=== PATIENT | female | born 1935 | race Caucasian/White ===

== ENCOUNTER 2016-03-27 12:44 | Observation (INO) | payer MEDICARE, OTHER ==
[~2016-03-27] VITALS: Ht 172.7 cm; Wt 95.5 kg
--- NOTE | ~2016-03-27 | HEMODYNAMI ---
PATIENT:BAILEY BLANCO MEDICAL RECORD: [id number] : 39 LOCATION:[facility] D.2112 ADMISSION DATE: 03/27/16 Generatedon:03/28/201617:50 Patient name: BAILEY BLANCO Patient #: [id number] SSN: : 1935 Date of study: 03/28/2016 Page: Of Hemodynamic Procedure Report Patient Data Patient Demographics Procedure consent was obtained First Name: BAILEY Gender: Female Last Name: BELLA : 1935 Middle Initial: M Age: 81 year(s) Patient #: [id number] Race: Unknown Additional ID: [id number] Contact details [address]: [address] [place] [address] State: [place] City: [place] Zip code: [address] Admission Admission Data Admission Date: 03/27/2016 Admission Time: 15:42 Room #: 2112 Procedure Procedure Types Cath Procedure Diagnostic Procedure LHC LHC w/Coronaries Procedure Description Procedure Date Procedure Date: 03/28/2016 Procedure Start Time: 17:31 Procedure Staff Name Function Sean Pryor MD Performing Physician Jeff Catalan RT Scrub Lina Anaya RN Nurse Brendan Farmer RT Monitor Procedure Data Cath Procedure Fluoroscopy Diagnostic fluoroscopy Total fluoroscopy Time: 1.3 time: 1.3 min min Diagnostic fluoroscopy Total fluoroscopy dose: dose: 178.16 mGy 178.16 mGy Contrast Material Contrast Material Type Amount (ml) Isovue 300 63 Entry Location Entry Primary Successful Side Size Upsize Upsize Entry Closure Succes sful Closure Location (Fr) 1 (Fr) 2 (Fr) Remarks Device Remarks Femoral Right 5 Fr Exoseal artery Diagnostic catheters Device Type Used For End Catheter Placement Cordis 5Fr JL 4.0 Left Coronary Catheter (MP) Angiography Cordis 5Fr 3DRC Catheter Right Coronary (MP) Angiography Cordis 5Fr Pigtail LV Angiography Catheter (MP) Procedure Medications Medication Administration Route Dosage Oxygen NC 2 l/min Heparin Flush Bag added to field 2 bags (1000units/500ml NS) Lidocaine 2% added to field 20 Fentanyl I.V. 50 mcg Versed I.V. 1 mg Fentanyl I.V. 50 mcg Versed I.V. 1 mg Hemodynamics Rest Heart Rate: 93 (bpm) Pressure Samples Time Site Value (mmHg) Purpose Heart Use Rate(bpm) 17:40 LV 125/8,7 Snapshot 83 17:40 LV 125/8,5 Snapshot 86 17:41 AO 122/83(101) Pullback 84 17:41 LV 108/16,15 Pullback 84 Gradients Valve Time Site 1 Site 2 Mean SEP/DFP Peak To Heart Use (mmHg) (sec/min) Peak Rate (mmHg) (bpm) Aortic 17:41 LV AO 0 84 108/16,15 122/83(101) Calculations Valve P-P Mean Valve Index Valve Source Name Gradient Area Flow (cm2) Aortic 0 0 Snapshots Pre Cath Intra NCS Post Cath Vital Signs Time Heart Resp SPO2 NIBP (mmHg) Rhythm Pain Sedation Rate (ipm) (%) Status Level (bpm) 16:06:33 91 17 93 166/98(130) NSR 0 (11) 10(A) , No pain 16:10:53 85 17 93 167/95(136) NSR 0 (11) 10(A) , No pain 16:15:15 86 16 91 158/92(133) NSR 0 (11) 10(A) , No pain 16:19:35 81 17 92 162/85(129) NSR 0 (11) 10(A) , No pain 16:23:55 85 17 92 152/92(135) NSR 0 (11) 10(A) , No pain 16:28:17 77 17 94 160/79(132) NSR 0 (11) 10(A) , No pain 16:32:39 83 18 94 156/87(124) NSR 0 (11) 10(A) , No pain 16:37:03 80 16 95 159/77(123) NSR 0 (11) 10(A) , No pain 16:41:24 83 19 96 165/91(117) NSR 0 (11) 10(A) , No pain 16:45:46 73 18 94 152/87(114) NSR 0 (11) 10(A) , No pain 16:50:02 80 20 96 160/93(125) NSR 0 (11) 10(A) , No pain 16:54:20 90 18 96 156/93(121) NSR 0 (11) 10(A) , No pain 16:58:38 96 20 97 163/92(118) NSR 0 (11) 10(A) , No pain 17:03:00 91 18 97 146/86(114) NSR 0 (11) 10(A) , No pain 17:07:22 80 17 94 150/69(103) NSR 0 (11) 10(A) , No pain 17:11:44 73 17 95 135/73(112) NSR 0 (11) 10(A) , No pain 17:16:00 82 18 94 151/74(99) NSR 0 (11) 10(A) , No pain 17:20:21 73 19 96 151/77(100) NSR 0 (11) 10(A) , No pain 17:24:41 79 16 97 130/78(98) NSR 0 (11) 10(A) , No pain 17:28:53 77 18 96 146/81(113) NSR 0 (11) 10(A) , No pain 17:33:05 83 18 95 141/89(122) NSR 0 (11) 9(A) , No pain 17:37:21 78 16 96 135/78(108) NSR 0 (11) 9(A) , No pain 17:41:35 85 18 96 146/78(104) NSR 0 (11) 9(A) , No pain 17:45:57 80 17 96 146/73(111) NSR 0 (11) 9(A) , No pain Medications Time Medication Route Dose Verified Delivered Reason Notes Effec tiveness by by 16:05:19 Oxygen NC 2 Lina Lina used for l/min Anaya Anaya aircraft armament mechanic RN 16:05:29 Heparin Flush added 2 Lina Lina used for Bag to bags Anaya Anaya procedure (1000units/500ml field RN RN NS) 16:05:37 Lidocaine 2% added 20ml Lina Lina used for to vial Anaya Anaya procedure field RN RN 17:31:39 Fentanyl I.V. 50 Lina Lina for mcg Anaya Anaya sedation RN RN 17:31:47 Versed I.V. 1 mg Lina Lina for Anaya Anaya sedation RN RN 17:34:31 Fentanyl I.V. 50 Lina Lina for mcg Anaya Anaya sedation RN RN 17:34:37 Versed I.V. 1 mg Lina Lina for Anaya Anaya sedation RN food and beverage checker Log Time Note 15:41:15 Brendan Farmer RT (R) (CV) sent for patient. Start room use. 15:56:32 Time tracking: Regular hours 15:56:38 Plan of Care:Hemodynamics will remain stable., Cardiac rhythm will remain stable., Comfort level will be maintained., Respiratory function will remain adequate., Patient/ family verbilizes understanding of procedure., Procedure tolerated without complication., Recovers from procedure without complications.. 15:56:43 Patient received from Outpatients to IR Alert and oriented. Tansferred to table in Supine position. 15:56:44 Correct patient and procedure confirmed by team. 15:56:46 Signed procedure consent form obtained from patient. 15:56:47 ECG and BP/O2 sat monitors applied to patient. 15:56:48 Full Disclosure recording started 15:56:49 - 15:56:54 H&P Date Dictated: 03/28/2016 Within 30 days and on chart.. 15:56:55 Pre-procedure instructions explained to patient. 15:56:56 Pre-op teaching completed and patient verbalized understanding. 15:56:57 Family in waiting room. 15:56:59 Patient NPO since Midnight. 15:59:52 Is the patient allergic to Iodine/contrast media? No. 15:59:55 Is patient on blood thinner?No 15:59:56 Patient diabetic? No. 16:00:00 - 16:00:02 ----Pre-sedation anethsthesia assessment.---- 16:00:05 Previous problem with sedation/anesthesia? No ? 16:00:36 Snore? Yes 16:00:38 Sleep apnea? No 16:00:42 Deviated septum? No 16:00:47 Opens mouth fully? Yes 16:00:49 Sticks out tongue? Yes 16:00:52 Airway obstruction? No ? 16:01:03 Pre procedure: right dorsailis pedis pulse Doppler 16:01:08 Patient pain scale 0/10 NO. 16:01:16 Use device set Femoral Dx 16:01:18 IV Extension Set opened to sterile field. 16:01:19 Tegaderm 4 x 4 opened to sterile field. 16:01:20 Cordis Infinity 5Fr Multipack catheter opened to sterile field. 16:01:21 Acist Manifold opened to sterile field. 16:01:22 Acist Hand Control opened to sterile field. 16:01:23 St Ankush 260cm J .035 wire opened to sterile field. 16:01:24 Terumo 5Fr [place] Sheath opened to sterile field. 16:01:25 Cardinal Cath Pack opened to sterile field. 16:01:25 Bag Decanter opened to sterile field. 16:01:31 Acist Syringe opened to sterile field. 16:05:19 Oxygen 2 l/min NC was given by Lina Anaya RN; used for procedure; 16:05:21 Vital chart was started 16:05:22 Baseline sample Acquired. 16:05:26 Rhythm: sinus rhythm 16:05:29 Heparin Flush Bag (1000units/500ml NS) 2 bags added to field was given by Lina Anaya RN; used for procedure; 16:05:37 Lidocaine 2% 20ml vial added to field was given by Lina Anaya RN; used for procedure; 16:05:42 IV patent on arrival in right hand with 0.9% NaCl at [facility]. 16:05:44 Sharps counted by scrub and verified by R.N. 16:05:44 Alarms reviewed by R. N. 16:05:49 Right groin area was prepped with chlora-prep and draped in sterile fashion 17:30:57 Physician arrived 17:30:57 --------ALL STOP TIME OUT------ 17:30:58 Final Timeout: patient, procedure, and site verified with staff and physician. All members of the team are in agreement. 17:31:02 Right groin site verified by team. 17:31:06 Physical assessment completed. ASA score P 2 - A patient with mild systemic disease as per Sean Pryor MD. 17:31:11 Sedation plan: IV Moderate Sedation Versed, Fentanyl 17:31:39 Fentanyl 50 mcg I.V. was given by Lina Anaya RN; for sedation; 17:31:43 Procedure started. 17:31:47 Versed 1 mg I.V. was given by Lina Anaya RN; for sedation; 17:31:52 Local anesthetic to right femoral artery with Lidocaine 2% by Sean Pryor MD.INITIAL ACCESS ONLY 17:32:12 A 5 Fr sheath was inserted into the Right Femoral artery 17:32:16 TUBING, CONTRAST INJCTN HI PRES opened to sterile field. 17:34:31 Fentanyl 50 mcg I.V. was given by Lina Anaya RN; for sedation; 17:34:37 Versed 1 mg I.V. was given by Lina Anaya RN; for sedation; 17:35:52 A Cordis 5Fr JL 4.0 Catheter (MP) was advanced over the wire and used for Left Coronary Angiography. 17:35:57 LCA angiography performed. 17:36:46 Catheter removed. 17:36:52 A Cordis 5Fr 3DRC Catheter (MP) was advanced over the wire and used for Right Coronary Angiography. 17:38:00 RCA angiography performed. 17:38:59 Catheter removed. 17:39:06 A Cordis 5Fr Pigtail Catheter (MP) was advanced over the wire and used for LV Angiography. 17:39:10 Zero performed for pressure channel P1 17:39:15 Zero performed for pressure channel P1 17:39:32 LV angiography performed. 17:40:45 Tegaderm 4 x 4 opened to sterile field. 17:41:04 Cordis 5Fr Exoseal opened to sterile field. 17:42:03 Sheath removed intact; hemostasis achieved with Exoseal to the Right Femoral artery. 17:42:23 Procedure ended.(Physican Out) 17:42:36 Fluoroscopy time 01.30 minutes. 17:42:43 Fluoroscopy dose: 178.16 mGy 17:42:43 Flurop Dose total: 178.16 17:42:49 Contrast amount:Isovue 300 63ml. 17:42:51 Sharps counted by scrub and verified by R.N. 17:42:56 Insertion/operative site no bleeding no hematoma. 17:43:12 Post-op/insertion site Right Femoral artery dressed using a 4 x 4 and Tegaderm. 17:43:27 Post right femoral artery:stable 17:43:29 Post Procedure Pulses reassessed and unchanged 17:43:34 Post-procedure physical assessment completed. ASA score P 2 - A patient with mild systemic disease as per Sean Pryor MD. 17:43:37 Post procedure rhythm: unchanged. 17:43:39 Post procedure instruction explained to patient.Patient verbalizes understanding. 17:43:40 Procedure and supply charges have been captured, reviewed, submitted an d are correct. 17:49:15 Report given to PCU. 17:49:19 Patient transfered to PCU with Bed. 17:50:04 Vital chart was stopped Device Usage Item Name Manufacture Quantity Catalog Hospital Part Current Minimal Lo t# / Number Charge Number Stock Stock Serial# Code IV Hospira 1 10678-47 [id number] 39528 829937 5 Extension Set Tegaderm 3M 2 1626W 134018 731968 139270 5 4 x 4 Cordis Cardinal 1 [id number] 635382 26219 984519 30 MyGeekDay 5Fr Multipack catheter Acist Acist 1 06793 825465 304785 064742 5 [employer] Acist Acist 1 06270 180342 279353 983156 5 Hand Medical [employer] Inc St Ankush St Ankush 1 832108 716481 159300 077116 30 260cm J .035 wire Terumo Terumo 1 FMK025 961148 178017 911464 40 5Fr [place] Sheath Cardinal Cardinal [address] 312039 47125 684243 5 Cath Pack Health Bag Microtek 1 2001S 306609 51521 032280 5 [email or web address] Acist Acist 1 48476 016339 190906 315788 20 Syringe Medical Systems Inc TUBING, Merit 1 OPO071B 142960 386501 932611 5 CONTRAST Medical INJCTN HI PRES Cordis Cardinal 1 331147 5 5Fr JL Health 4.0 Catheter (MP) Cordis Cardinal 1 570431 5 5Fr 3DRC Health Catheter (MP) Cordis Cardinal 1 984945 5 5Fr Health Pigtail Catheter (MP) Cordis Cardinal 1 EX500 922966 960316 759421 10 17 489027 5Fr Health Exoseal Signature Audit [place] Stage Time Signature Unsigned Intra-Procedure 03/28/2016 Brendan 5:50:01 PM Marleny RT (R) (CV) Signatures Monitor : Brendan Signature : Marleny RT Date : Time : [address] [place] [address]
[2016-03-27 13:45] LABS: BASOPHILS 0.5 % (0.0-2.0); EOSINOPHILS 2.3 % (0-7); HEMATOCRIT 40.1 % (36.0-48.0); HEMOGLOBIN 13.3 g/dL (12-16); IMMATURE GRANULOCYTES 0.2 % (0-5); LYMPHOCYTES 29.6 % (15-50); MCH 30.4 pg (26.0-34.0); MCHC 33.2 g/dL (31.0-37.0); MCV 91.6 fL (80.0-100.0); MEAN PLATELET VOLUME 9.7 fL (7.4-10.4); MONOCYTES 14.4 % (2-11); PLATELET COUNT 188 10x3/uL (130-400); RBC 4.38 10x6/uL (4.00-5.40); RDW 12.4 % (11.5-14.5); WBC 6.1 10x3/uL (4.8-10.8)
[2016-03-27 14:02] LABS: ALBUMIN 3.4 g/dL (3.4-5.0); ANION GAP 15.5 mmol/L (8-16); BILIRUBIN - TOTAL 0.3 mg/dL (0.2-1.3); CALCIUM 8.7 mg/dL (8.5-10.1); CARBON DIOXIDE 23.4 mmol/L (21.0-32.0); POTASSIUM - SERUM 3.9 mmol/L (3.5-5.1); PROTEIN - SERUM 6.5 g/dL (6.4-8.2)
[2016-03-27 14:22] LABS: TROPONIN-I 0.119 ng/mL (0.000-0.060)
[2016-03-27 15:20] LABS: CREATINE KINASE 126 UL (21-215)
[2016-03-27] MEDS ORDERED: COREG6.25 MG PO (16:30)
[2016-03-27] MEDS ORDERED: COZAAR100 MG PO (16:31)
[2016-03-27] MEDS ORDERED: TENORMIN25 MG PO (16:31)
[2016-03-27] MEDS ORDERED: SYNTHROID25 MCG PO (16:31)
[2016-03-27] MEDS ORDERED: IPRATROPIUM BR21 MCG NASAL (16:31)
[2016-03-27] MEDS ORDERED: OMEPRAZOLE40 MG PO (16:32)
[2016-03-27] MEDS ORDERED: TRICOR145 MG PO (16:32)
[2016-03-27 16:41] VITALS: BP 174/82; Ht 172.7 cm; Wt 95.5 kg
--- NOTE | 2016-03-27 16:49 | NUR ---
RECEIVED PT FROM ER VIA WHEELCHAIR. NO OTHER NEEDS AT THIS TIME. 93 SR PER TELEMETRY. NO CO PAIN AT THIS TIME. VSS AT THIS TIME. WILL CONTINUE TO MONITOR.
[2016-03-27 20:00] VITALS: BP 145/79
--- NOTE | 2016-03-27 20:09 | NUR ---
RESUMED CARE OF PT, LYING IN BED RESPIRAITONS EVEN AND UNLABORED ON 2LPM VIA NC. 81 SR ON TELEMETRY. RIGHT WRIST SALINE LOCKED. PLAN OF CARE DISCUSSED. CALL LIGHT IN REACH. WILL CONTINUE TO MONITOR. SEE NURSE ASSESSMENT.
[2016-03-28] VITALS: BP 154/66
[2016-03-28 04:00] VITALS: BP 146/79
--- NOTE | 2016-03-28 05:58 | NUR ---
NO CHANGES FROM PREVIOUS ASSESSMENT, CALL LIGHT IN REACH. WILL CONTINUE WITH PLAN OF CARE.
[2016-03-28 07:39] LABS: BASOPHILS 0.5 % (0.0-2.0); EOSINOPHILS 4.1 % (0-7); HEMATOCRIT 40.9 % (36.0-48.0); HEMOGLOBIN 13.3 g/dL (12-16); LYMPHOCYTES 44.8 % (15-50); MCH 29.9 pg (26.0-34.0); MCHC 32.5 g/dL (31.0-37.0); MCV 91.9 fL (80.0-100.0); MEAN PLATELET VOLUME 9.4 fL (7.4-10.4); MONOCYTES 12.6 % (2-11); PLATELET COUNT 187 10x3/uL (130-400); RBC 4.45 10x6/uL (4.00-5.40); RDW 12.4 % (11.5-14.5)
[2016-03-28 07:46] LABS: WBC 4.4 10x3/uL (4.8-10.8)
[2016-03-28 07:47] LABS: HCG SERUM NEGATIVE (NEGATIVE)
[2016-03-28 07:50] LABS: CALCIUM 8.9 mg/dL (8.5-10.1); CARBON DIOXIDE 28.7 mmol/L (21.0-32.0); CREATININE - SERUM 0.9 mg/dL (0.6-1.3); POTASSIUM - SERUM 3.7 mmol/L (3.5-5.1)
[2016-03-28 08:00] VITALS: BP 141/81
[2016-03-28 12:00] VITALS: BP 134/76
--- NOTE | 2016-03-28 15:40 | NUR ---
ALERT AND ORIENTED X4. SITTING UP IN BED. FAMILY AT BEDSIDE. DENIES PAIN OR SOB. CONSENTS FOR AVIATION TECHNICIAN AIRCRAFT SIGNED ON THE CHART. TAKEN TO AVIATION TECHNICIAN AIRCRAFT VIA BED. CONTINUE PLAN OF CARE AND SAFETY PRECAUTIONS.
[2016-03-28 16:00] VITALS: BP 143/78
--- NOTE | 2016-03-28 18:09 | NUR ---
RETURN TO ROOM VIA BED FROM SALVAGE INSPECTOR. CLEAN CATH. REMAIN FLAT FOR 2HRS. RT GROIN DRESSING CLEAN DRY INTACT. NO BLEEDING. NO HEMATOMA. PULSES +2 BILATERALLY. BP-143/76, R-16, P-76bpm SINUS RHYTHM. FAMILY AT BEDSIDE. CONTINUE PLAN OF CARE AND SAFETY PRECAUTIONS.
--- NOTE | 2016-03-28 18:40 | NUR ---
UNABLE TO DC UNTIL 1949. DELEGATE DC PAPERWORK TO REPRESENTATIVE PERSONAL SERVICE NURSE.
[2016-03-28 20:00] VITALS: BP 135/62
--- NOTE | 2016-03-28 21:04 | NUR ---
PT AMBULATED @ 20:10 WITH ASSIST TO THE BATHROOM, WHEN SHE DID HAVE A SINKING SPELL AND NEEDED TO SIT DOWN IMMEDIATELY. PT WAS PLACED IN THE BEDSIDE CHAIR WITHOUT DIFFICULTY BY KAYLAN SANCHEZ, BECAME PALE, DYSPNEIC, AND NEAR SYNCOPAL. PT WAS HYPOTENSIVE AND TACHYCARDIC, C/O CHEST PAIN THAT DID RESOLVE WITH REST. PTS RIGHT GROIN IS INSERTION POINT FROM CARDIAC CATH EARLIER TODAY, CLEAN, DRY, INTACT, NO OOZING OR BLEEDING, NO BRUISING. PT WAS RETURNED TO HER BED, WHERE I DID A SMALL BOLUS 500MLS OF NS TO HELP WITH B/P. PTS COLOR DID RETURN UPON REST, BREATHING BECAME NONLABORED AND EVEN. WILL CONTINUE TO MONITOR CLOSELY. PT IS TO BE D/C'D TODAY, HOWEVER AT THIS TIME, PT DOES REQUIRE FURTHER MONITORING.
--- NOTE | 2016-03-28 22:42 | NUR ---
SPOKE WITH DR. ISABEL VIA TELEPHONE R/T PTS CURRENT CONDITION AND THOUGH SHE IS FEELING BETTER, STATED SHE WAS NOT COMFORTABLE BEING D/C'D AT THIS TIME. DR. ISABEL ORDERED TO CANCEL HER D/C FOR TODAY AND KEEP HER FOR OBSERVATION. CONTINUE TO MONITOR CLOSELY.
[2016-03-29] VITALS: BP 115/56
[2016-03-29 04:00] VITALS: BP 121/72
--- NOTE | 2016-03-29 05:56 | NUR ---
PT LYING IN BED, EYES CLOSED, RESPIRATIONS UNEVEN, PERIODS OF APNEA, EASILY ROUSABLE TO VERBAL STIMULI. PT STATES SHE IS FEELING MUCH BETTER SINCE HER SINKING SPELL LAST P.M. CONTINUE TO MONITOR CLOSELY.
[2016-03-29 08:54] VITALS: BP 178/100
[2016-03-29 12:15] VITALS: BP 161/93
--- NOTE | 2016-03-29 16:30 | NUR ---
ALERT AND ORIENTED X4. SITTING UP IN BED. DISCHARGE INSTRUCTIONS GIVEN VERBALLY AND WRITTEN. DISCHARGE INSTRUCTIONS GIVEN VERBALLY AND WRITTEN. DC RT WRIST IV TIP INTACT. ESCORT TO RIDE VIA WHEELCHAIR. REMAINS FREE FROM INJURY.
--- NOTE | 2016-03-30 14:16 | OP ---
PATIENT NAME: BAILEY BLANCO MEDICAL RECORD: [id number] :37 LOCATION:D. D.2111 ADMISSION DATE:03/27/16 SURGEON: EMMANUEL ORO MD DATE OF OPERATION: PROCEDURE: Left heart cath and selective coronary angiography, right femoral artery approach. CATHETERS: A 5-Mexican sheath, 5/4 left and right Garcia, 5/4 pig. The procedure was well tolerated. The patient returned to the guerrero, sheath removed. Adequate hemostasis was obtained. FINDINGS: Left ventriculography 30-degree BOOTH view: Normal wall motion and normal systolic function. CORONARY ANATOMY: LEFT MAIN: Left main is free of disease. LAD: Free of disease in the diagonal system. CIRCUMFLEX: Free of disease in the marginal system. RIGHT CORONARY ARTERY: Dominant artery, gives rise to PDA, free of disease. IMPRESSION: Normal systolic function. Normal coronary anatomy. TRANSINT:[id number] Voice Confirmation ID: [id number] DOCUMENT ID: [id number] EMMANUEL ORO MD at 1416 CC: [id number] DICTATION DATE: 03/28/16 174 PLATE MAKER ZINC: 03/28/161955 DIS IN 03/29/16 [facility] [address] [place] [address]
--- NOTE | 2016-03-30 14:16 | HP ---
PATIENT: BAILEY BLANCO MEDICAL RECORD: [id number] ACCOUNT: [id number] LOCATION:[facility] D.2111 : 37 ADMISSION DATE: 03/27/16 HISTORY AND PHYSICAL EXAMINATION HISTORY OF PRESENT ILLNESS: A 81-year-old female with history of cardiac arrhythmias, SVT. She has a history of hypertension and has been noticing progressive shortness of breath over the past couple of months. She had an episode yesterday of chest pain, which was somewhat new. She presented to the ER, was found to have mildly elevated enzymes. 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 We are asked to see her concerning her cardiovascular status. PAST MEDICAL HISTORY: Include: 1. History of cardiac arrhythmias with SVT. 2. Dyslipidemia. 3. Hypertension. 4. Hypothyroidism, on replacement. 5. Gastroesophageal reflux disease. ALLERGIES: SULFA, STATINS, LATEX, AND KEFLEX. SOCIAL HISTORY: Lives here in [place]. She is a nonsmoker. She takes care all of her ADLs. MEDICATIONS: Include carvedilol 6.25 b.i.d., TriCor 145 every day, losartan 100 every day, omeprazole 40 every day, Synthroid 25 mcg every day. REVIEW OF SYSTEMS: The patient reports easy bruising but reports no swollen glands. The patient reports no fever, no night sweats, no significant weight gain, no significant weight loss. No significant exercise tolerance. The patient reports no dry eyes, no irritation, no vision change. Patient reports no difficulty hearing and no ear pain. Patient reports no frequent nose bleeds or nose and sinus problems. Patient reports on arm pain on exertion. No shortness of breath while lying down. No history of heart murmur. Patient reports no cough, no wheezing or coughing up blood. Patient reports no abdominal pain, no vomiting. Normal appetite. No diarrhea and not vomiting blood. No nausea and no constipation. Patient reports no incontinence. No difficulty urinating. No hematuria. No increased frequency. Patient reports no muscle aches. No weakness, no arthralgias, no back pain. No swelling of the extremities. Patient reports no abnormal mole, no jaundice, no rashes. Reports no loss of consciousness. No weakness and no numbness. No seizures, dizziness, or headaches. The patient reports no depression, no sleep disturbance, feeling safe in a relationship and no alcohol abuse. Patient reports on fatigue. Reports no runny nose or sinus pressure. No itching, no hives, and no frequent sneezing. PHYSICAL EXAMINATION: GENERAL: Pleasant gentleman in no acute distress, appears stated age. VITAL SIGNS: Blood pressure 146/79, pulse 81 and regular. HEENT: Normocephalic and atraumatic. NECK: No JVD or bruit. HEART: Regular. LUNGS: Harris are clear. ABDOMEN: Soft and nontender. HISTORY AND PHYSICAL [id number] BLAN[place]ILEY EXTREMITIES: Pulses 2+ and equal. There is no edema. DIAGNOSTIC DATA: ECG shows left anterior fascicular block. IMPRESSION: Acute coronary syndrome. PLAN: Angiography. Intervention based on above. TRANSINT:[id number] Voice Confirmation ID: [id number] DOCUMENT ID: [id number] EMMANUEL ORO MD at 1416 CC: [id number] DICTATION DATE: 03/28/16 0738 CURTAIN FITTER: 03/28/16 0911 DIS IN 03/29/16 [id number] [place] [address]
== END 2016-03-29 16:30 | disposition home or self-care (01) ==
LOC: D.ER 12:44 → D.M2 15:42 → OBSVTIME 15:43 → D.M2 03-29 16:30
PROVIDERS: Emergency Medicine; Nurse Practitioner Acute Care; ADMIT Internal Medicine Interventional Cardiology
DX: R07.9 Chest pain, unspecified (principal); I44.4 Left anterior fascicular block; R79.89 Other specified abnormal findings of blood chemistry; E78.5 Hyperlipidemia, unspecified; E03.9 Hypothyroidism, unspecified; K21.9 Gastro-esophageal reflux disease without esophagitis

== ENCOUNTER → 2016-04-20 12:52 | Outpatient (CLI) | payer MEDICARE, OTHER ==
[2016-03-27 16:41] VITALS: BMI 32.0
[~2016-04-20 12:52] MED LIST: COREG6.25 MG PO; COZAAR100 MG PO; IPRATROPIUM BR21 MCG NASAL; OMEPRAZOLE40 MG PO; SYNTHROID25 MCG PO; TENORMIN25 MG PO; TRICOR145 MG PO
== END | disposition home or self-care (01) ==
LOC: D.US 12:52
DX: M79.605 Pain in left leg (principal); R60.0 Localized edema

== ENCOUNTER → 2016-04-25 18:49 | Outpatient (CLI) | payer MEDICARE, OTHER ==
[2016-03-27 16:41] VITALS: BMI 32.0
== END | disposition home or self-care (01) ==
LOC: D.SLEEP 18:49
DX: G47.33 Obstructive sleep apnea (adult) (pediatric) (principal)

== ENCOUNTER 2016-09-12 23:23 | Emergency (ER) | payer MEDICARE, OTHER ==
[2016-03-27 16:41] VITALS: BMI 32.0
== END 2016-09-13 02:55 | disposition home or self-care (01) ==
LOC: D.ER 23:23
DX: S51.811A Laceration without foreign body of right forearm, initial encounter (principal); W20.8XXA Other cause of strike by thrown, projected or falling object, initial encounter; Y93.89 Activity, other specified; Y92.019 Unspecified place in single-family (private) house as the place of occurrence of the external cause; I10 Essential (primary) hypertension; E78.5 Hyperlipidemia, unspecified

== ENCOUNTER → 2017-09-04 19:31 | Outpatient (CLI) | payer MEDICARE, OTHER ==
[2016-03-27 16:41] VITALS: BMI 32.0
[~2017-09-04 19:31] MED LIST changes: +ELIQUIS2.5 MG PO; +HYDROCODONE-APA1 TAB PO; +MAGNESIUM OXID500 MG PO; +VITAMIN B-121000 MCG PO; +VITAMIN D31000 UNIT PO; +ZANTAC150 MG PO
== END | disposition home or self-care (01) ==
LOC: D.LABREF 19:31
DX: M16.12 Unilateral primary osteoarthritis, left hip (principal); Z11.8 Encounter for screening for other infectious and parasitic diseases

== ENCOUNTER 2017-09-13 10:00 | Inpatient (IN) | payer MEDICARE, OTHER ==
[~2017-09-13] VITALS: Ht 172.7 cm; Wt 95.5 kg
--- NOTE | ~2017-09-13 | CN ---
PATIENT NAME:BAILEY BLANCO MEDICAL RECORD: [id number] : 39 LOCATION:D.MS [facility]25 ADMIT DATE: 09/19/17 ACCOUNT: [id number] CONSULTING PHYSICIAN: HARSHA GAFFNEY DO REFERRING PHYSICIAN: ЕЛЕНА POLLARD DO DATE OF CONSULTATION: 09/20/2017 HISTORY OF PRESENT ILLNESS: An 82-year-old female had left total hip, Dr. Pollard, consult for medical management and hypertension. PAST MEDICAL HISTORY: Significant for hypertension, hyperlipidemia, degenerative joint disease, GERD. Sleep apnea, does CPAP, tolerates well, and hypothyroid. PAST SURGICAL HISTORY: Bilateral mastectomy, cardiac catheterization, left total hip with this hospitalization. CURRENT MEDICATIONS: Fenofibrate, levothyroxine 25 mcg daily, losartan 100 mg daily, vitamin D. ALLERGIES: REPORTED CEPHALEXIN, LATEX, LEVAQUIN, STATINS, SULFUR DIOXIDE. REVIEW OF SYSTEMS: GENERAL: No acute change in weight or appetite. HEENT: No cephalgia, visual changes, tinnitus, epistaxis or dysphagia. CARDIOVASCULAR: Denies chest pain, denies palpitations. PULMONARY: Denies hemoptysis, denies night sweats. GASTROINTESTINAL: Denies hematemesis, hematochezia or melena. MUSCULOSKELETAL: Status post left hip, doing well, pain well controlled. NEUROLOGIC: Denies any focal deficits. SKIN: Warm and dry. No rash. PHYSICAL EXAMINATION: VITAL SIGNS: Temperature 98.1, blood pressure 144/49, heart rate 66, respirations 18 and O2 saturations 92% on room air. GENERAL: Alert and oriented, no acute distress. HEENT: Head is normocephalic, atraumatic. Eyes: Pupils are equally round and reactive. Ears: Canals patent, TMs are intact. Nose: Nares patent without drainage. Throat: No erythema, no exudates. NECK: Supple. No lymphadenopathy, no JVD. HEART: Regular rate and rhythm. LUNGS: Clear to auscultation bilaterally. Breathing is nonlabored. ABDOMEN: Soft, nontender. Bowel sounds in all 4 quadrants. EXTREMITIES: Present times 4. No edema. NEUROLOGIC: Intact. LABORATORY DATA: CBC: White count 8.7, hemoglobin 11.5, hematocrit 35.4, platelets 203. X-ray of left hip shows a total hip prosthesis in place on the left. Also noted degenerative changes in the right. ASSESSMENT AND PLAN: 1. Status post left total hip, ortho pathway. The patient would like to try physical therapy at home with home health. 2. Hypertension. Resume home medications. 3. Hypothyroid. Continue levothyroxine 25 mcg daily. CONSULT REPORT [id number] BAILEY BLANCO 4. Obstructive sleep apnea. Continue CPAP with sleep. Supportive care. I appreciate this consult. We will follow accordingly. TRANSINT:[id number] Voice Confirmation ID: [id number] DOCUMENT ID: [id number] HARSHA GAFFNEY DO at 0805 CC: [id number] DICTATION DATE: 09/20/17 0657 PARKING ENFORCEMENT MANAGER: 09/20/17 0821 ADM IN [id number] [place] [address]
--- NOTE | ~2017-09-13 | OP ---
PATIENT NAME: BAILEY BLANCO MEDICAL RECORD: [id number] :37 LOCATION: D.2225 ADMISSION DATE:09/19/17 SURGEON: ЕЛЕНА POLLARD DO DATE OF OPERATION: 09/19/2017 PROCEDURE PERFORMED: Left total hip arthroplasty. PREOPERATIVE DIAGNOSIS: Left hip osteoarthritis. POSTOPERATIVE DIAGNOSIS: Left hip osteoarthritis. INDICATIONS: Ms. Blanco is an 82-year-old female who presented to my office sometime last fall complaining of left hip pain and lack of motion. She was not ready for a total hip. She said she wanted to try something else. We gave her intra-articular injections under fluoroscopic guidance and radiologist did this. She had some relief, but then after her last one, she did not get much relief and she has tired of dealing with the pain. Once this was apparent that the injections were not helping, she had a long discussion with me and her son who was present as well about getting it done. Once the decision was made, she was informed of the risks and benefits of the surgery including infection and numbness of the anterolateral thigh due to the anterior approach of the hip. The patient consented to the procedure. SURGEON: Елена Pollard DO DESCIRPTION OF PROCEDURE: The patient was seen in the preoperative area, given the tensor fascia alissa block by the anesthesia and then taken to the operative suite, laid in the supine position. The left hip was prepped and draped in sterile fashion. A timeout was performed and everyone was in agreement to the correct side, site, and patient. The patient was put on the [place] table. Prior to this prepping and draping and a timeout was performed. Then, the incision began 2 cm below and lateral to the ASIS and diagonally over the tensor fascia alissa muscle. Careful dissection was made down to the tensor fascia alissa fascia. This was incised in line with the fibers. The fascia was taken superiorly. Muscle belly was taken inferiorly and the fascia over the rectus was incised and the rectus was taken medially and the tensor fascia alissa laterally. The ascending branch of the lateral femoral circumflex artery was encountered. At that time, it was tied off and coagulated with the Aquamantys and then the capsule was exposed putting retractors on either side of the neck and the capsulotomy was performed with the plasma knife and tagged and then the neck cut was made. The femoral head was taken out and neck with a corkscrew. The labrum was then removed from around the acetabulum and the pulvinar was removed as well. Any bleeders were coagulated with the Aquamantys at that time. We then began reaming first medializing and then reamed up to a 49 and then a 50 cup was put in with a liner. Once the liner was put in, the femur was exposed externally rotating and extending the leg. JobSerf cutter was then used to find the femoral canal and the 4 broach broached up to a 9 trial that looked to be good size with a -3 neck and a dual mobility head. We then pulled that out and then 9 stem was a little bit loose and we broached up to an 11. The 11 fit very well. I used a high offset stem and then trialled a -3 neck with a 28 dual mobility head with 40 acetabular liner and reduced it and then looked under x-ray and seemed to be appropriate length and good fit in the femoral stem. This was then put in with the actual implants. It was reduced and again x-rays were taken and seen to be in good position. Then, the wound was irrigated thoroughly and Surgicel beads were placed in and the capsule was closed with #2 OPERATIVE REPORT [id number] BAILEY BLANCO and the tensor fascia alissa fascia was closed with 0 Vicryl and [id number] and then oversewn in a locking running stitch. Then the skin was closed with 2-0 Vicryl inverted interrupted and Prineo was placed on the skin and Telfa and Tegaderm were then put on the wound. The patient's blood loss was approximately 200 mL. Complications were none. TRANSINT:[id number] Voice Confirmation ID: [id number] DOCUMENT ID: [id number] ЕЛЕНА POLLARD DO at 1257 CC: [id number] DICTATION DATE: 09/19/17 1018 VOLUNTEER RECRUITMENT COORDINATOR: 09/19/17 1047 ADM IN [facility] [address] [place] [address]
[~2017-09-13 10:00] MED LIST changes: -ELIQUIS2.5 MG PO; -HYDROCODONE-APA1 TAB PO
[2017-09-13 11:41] LABS: BASOPHILS 0.3 % (0-2); EOSINOPHILS 2.9 % (0-7); HEMATOCRIT 41.1 % (36.0-48.0); HEMOGLOBIN 13.7 g/dL (12-16); IMMATURE GRANULOCYTES 0.2 % (0-5); LYMPHOCYTES 28.5 % (15-50); MCH 30.2 pg (26.0-34.0); MCHC 33.3 g/dL (31.0-37.0); MCV 90.5 fL (80.0-100.0); MEAN PLATELET VOLUME 9.6 fL (7.4-10.4); MONOCYTES 13.1 % (2-11); RBC 4.54 10x6/uL (4.00-5.40); RDW 12.9 % (11.5-14.5); WBC 6.6 10x3/uL (4.8-10.8)
[2017-09-13 11:51] LABS: PLATELET COUNT 243 10x3/uL (130-400)
[2017-09-13 11:54] LABS: ANION GAP 7.9 mmol/L (8-16); CALCIUM 9.6 mg/dL (8.5-10.1); CARBON DIOXIDE 31.9 mmol/L (21.0-32.0); CREATININE - SERUM 0.9 mg/dL (0.6-1.3); POTASSIUM - SERUM 3.8 mmol/L (3.5-5.1)
[2017-09-13 12:03] LABS: APPEARANCE CLEAR (CLEAR); BILIRUBIN NEGATIVE (NEGATIVE); COLOR YELLOW (YELLOW); GLUCOSE NEGATIVE (NEGATIVE); KETONE NEGATIVE (NEGATIVE); NITRITE NEGATIVE (NEGATIVE); PROTEIN NEGATIVE (NEGATIVE); UROBILINOGEN NORMAL (NORMAL)
[2017-09-13 12:29] LABS: APTT 30.4 SECONDS (22.8-39.4); PROTIME 12.8 SECONDS (11.6-15.0)
[2017-09-19 06:27] VITALS: BP 160/102; BMI 31.8
[2017-09-19 11:24] VITALS: BP 157/72
[2017-09-19 19:23] VITALS: Ht 172.7 cm; Wt 95.5 kg
[2017-09-19 20:00] VITALS: BP 109/62
[2017-09-20 04:46] LABS: HEMATOCRIT 35.4 % (36.0-48.0); HEMOGLOBIN 11.5 g/dL (12-16); MCH 29.5 pg (26.0-34.0); MCHC 32.5 g/dL (31.0-37.0); MCV 90.8 fL (80.0-100.0); MEAN PLATELET VOLUME 9.8 fL (7.4-10.4); RBC 3.9 10x6/uL (4.00-5.40); RDW 12.9 % (11.5-14.5); WBC 8.7 10x3/uL (4.8-10.8)
[2017-09-20 05:46] VITALS: BP 144/49
[2017-09-20 07:44] VITALS: BP 107/44
[2017-09-20 11:59] VITALS: BP 102/45
[2017-09-20 15:49] VITALS: BP 122/55
[2017-09-20 19:53] VITALS: BP 143/74
[2017-09-20 23:54] VITALS: BP 121/48
[2017-09-21 04:00] VITALS: BP 146/63
[2017-09-21 05:20] LABS: BASOPHILS 0.3 % (0-2); EOSINOPHILS 0.5 % (0-7); HEMATOCRIT 34.6 % (36.0-48.0); HEMOGLOBIN 11.3 g/dL (12-16); IMMATURE GRANULOCYTES 0.2 % (0-5); LYMPHOCYTES 19.6 % (15-50); MCH 29.4 pg (26.0-34.0); MCHC 32.7 g/dL (31.0-37.0); MCV 90.1 fL (80.0-100.0); MEAN PLATELET VOLUME 9.9 fL (7.4-10.4); MONOCYTES 13.9 % (2-11); NEUTROPHILS 65.5 % (40-80); PLATELET COUNT 171 10x3/uL (130-400); RBC 3.84 10x6/uL (4.00-5.40); RDW 12.8 % (11.5-14.5); WBC 6.6 10x3/uL (4.8-10.8)
[2017-09-21 05:31] LABS: CALC OSMOLALITY 270 mosm/kg (275-300); CALCIUM 8.1 mg/dL (8.5-10.1); CARBON DIOXIDE 26.7 mmol/L (21.0-32.0); CHLORIDE - SERUM 100 mmol/L (98-107); CREATININE - SERUM 0.7 mg/dL (0.6-1.3); GLUCOSE 85 mg/dL (74-106); POTASSIUM - SERUM 3.7 mmol/L (3.5-5.1); SODIUM 136 mmol/L (136-145); UREA NITROGEN 12 mg/dL (7-18); eGFR NON AFRICAN AMERICAN 85 mL/min (90-120)
[2017-09-21 08:11] VITALS: BP 128/69
[2017-09-21 11:43] VITALS: BP 106/57
[2017-09-21 15:25] VITALS: BP 100/46
[2017-09-21 20:00] VITALS: BP 120/57
[2017-09-22 04:00] VITALS: BP 107/50
[2017-09-22] MEDS ORDERED: ELIQUIS2.5 MG PO (08:35)
[2017-09-22] MEDS ORDERED: HYDROCODONE-APA1 TAB PO (08:36)
[2017-09-22 09:35] VITALS: BP 130/61
[2017-09-22 16:07] VITALS: BP 105/63
== END 2017-09-22 16:29 | DRG 470 ==
LOC: D.SDCHOLD 10:00 → D.MS 09-19 05:05 → D.SDCHOLD 09-19 05:05 → D.MS 09-19 11:22
PROVIDERS: Anesthesiology; Family Medicine; Orthopaedic Surgery
PROC: 0SRB0JZ Replacement of Left Hip Joint with Synthetic Substitute, Open Approach (ICD-10-PCS; principal; 2017-09-19 07:30)
DX: M16.12 Unilateral primary osteoarthritis, left hip (principal); I10 Essential (primary) hypertension; E03.9 Hypothyroidism, unspecified; G47.33 Obstructive sleep apnea (adult) (pediatric)

== ENCOUNTER 2017-09-22 15:18 | Inpatient (IN) | payer MEDICARE, OTHER ==
[~2017-09-22] VITALS: Ht 172.7 cm; Wt 93.9 kg
--- NOTE | ~2017-09-22 | DS ---
PATIENT:BAILEY BLANCO :39 MEDICAL RECORD: [id number] DISCHARGE SUMMARY ADMISSION DATE: 09/22/17 DISCHARGE DATE: 10/04/17 This is a discharge dated 10/04/2017 from inpatient rehabilitation. PRIMARY DIAGNOSES: Decreased functional ability and ability to provide activities of daily living, status post left total hip arthroplasty. SECONDARY DIAGNOSES: 1. Acute blood loss anemia. 2. Degenerative joint disease. 3. Neuropathy. 4. Arthritis. 5. Hypertension. 6. Hyperlipidemia. 7. Hypothyroidism. 8. Hypomagnesemia. 9. Gastroesophageal reflux disease. 10. Obstructive sleep apnea. HOSPITAL COURSE: Full H&P is located elsewhere on the chart on this 82-year-old female who was admitted to inpatient rehab for physical therapy and occupational therapy to improve gait, transfer skills, bed mobility, and activities of daily living to a modified independent level. She was evaluated by PT and OT and their plans of care were followed. She required fpc care for observation and assessment and medication administration. Electrolytes were managed by protocol. She was cooperative with therapies, progressing towards goals. Case management was involved for discharge planning. She was considered stable for discharge on 10/04/2017. DISCHARGE MEDICATIONS: As per discharge medication reconciliation. DISCHARGE DISPOSITION: The patient is discharged home. She will continue her current diet and level of activity. She will have home health for continued PT and OT and will follow up with primary care in 7-10 days and specialists as directed. At least 30 minutes was spent in this discharge activity. TRANSINT:[id number] Voice Confirmation ID: [id number] DOCUMENT ID: [id number] Dictated By: OTIS BLACKMAN I have interviewed/examined the above patient and agree with these documented findings. DISCHARGE SUMMARY REPORT [id number] BAILEY BLANCO SCOTT MD CC: [id number] DICTATION DATE: 11/26/17 1523 FINISHING OPERATOR: 11/26/17 2306 DIS IN 10/04/17 [id number] [place] [address]
--- NOTE | ~2017-09-22 | RHP ---
PATIENT: BAILEY BLANCO MEDICAL RECORD: [id number] ACCOUNT: [id number] LOCATION:[facility] [address] : 39 ADMISSION DATE: 09/22/17 REHABILITATION HISTORY AND PHYSICAL EXAMINATION POST ADMISSION PHYSICIAN EXAMINATION DATE OF ADMISSION: 09/22/2017 ADMITTING DIAGNOSES: Left total hip arthroplasty. HISTORY OF PRESENT ILLNESS: The patient is admitted to inpatient rehab from orthopedic complaint of left total hip arthroplasty. She is an 82-year-old female patient that has a left total hip on 09/19/2017. She had some postop complications including blood loss anemia, hypoxia, requiring O2, increased pain and impaired mobility, self-care deficit. She lives at home alone. States that she has had bad knees and recently had some injections in them to see if she can get some improvement in this, but it did not help with the weakness, but did help somewhat with the pain. She was independent with mobility, both in ADLs. She and her son planned for her to return home at her prior level of function and/or possible after her acute inpatient rehab stay. COMORBIDITIES: Include acute postop blood loss anemia status post left total hip, hypertension, weak knees, osteoarthritis, postop hypoxia, advanced age, impaired mobility, pain and self-care deficit. PAST MEDICAL HISTORY: Significant for neuropathy, numbness, weakness, hypertension, hyperlipidemia, degenerative joint disease, gastroesophageal reflux disease, sleep apnea, acid reflux, arthritis, menopause and hypothyroidism. PAST SURGICAL HISTORY: Includes bilateral mastectomy, rotator cuff repair and cardiac catheterization. ALLERGIES: SULFA, LATEX, RUBBER, KEFLEX, LEVAQUIN, ANY TYPE OF STATIN, AND TREE POLLEN. CURRENT MEDICATIONS: Include Pepcid 20 mg daily, Protonix 40 mg daily, Mag-Ox 400 mg daily, Cozaar 100 mg daily, Synthroid 25 mcg daily, fenofibrate 145 mg daily, B12 1000 mg daily, cholecalciferol 2000 units daily, atenolol 25 mg daily, Atrovent nasal spray 2 sprays t.i.d., [place] 10/325 one tab every 6 hours p.r.n., carvedilol 6.25 mg b.i.d. with meals and Eliquis 2.5 mg b.i.d. HABITS: No alcohol or tobacco use. FAMILY HISTORY: Noncontributory. SOCIAL HISTORY: The patient hopes to return back home and get back to her prior level of functioning. REVIEW OF SYSTEMS: GENERAL: Does complain of some weakness. HEENT: Denies cold, cough, or congestion. CARDIOVASCULAR: Denies chest pain. PHYSICAL EXAMINATION: HISTORY AND PHYSICAL [id number] BAILEY BLANCO VITAL SIGNS: Stable, afebrile. GENERAL: Elderly female, in no acute distress upon exam. HEENT: Normocephalic and atraumatic. Mucosa moist. NECK: Supple without adenopathy. LUNGS: Clear at this time. HEART: Regular rate and rhythm. ABDOMEN: Benign. EXTREMITIES: Does have postop changes to her left hip, which appear normal. She has normal postop swelling. NEUROLOGIC: Does have noted weakness. LABORATORY DATA: White count is 6.4, H&H of 11 and 33 and platelet count is 194. Sodium is 138, potassium 3.5, BUN and creatinine of 11 and 0.6 and blood sugar is noted to be 104. ASSESSMENT: This is an 82-year-old female patient admitted to rehab with a working diagnosis of status post left total hip arthroplasty. The patient has potential to make improvement. We instituted the following multidisciplinary therapies including, but not limited to physical, occupational, respiratory, speech, nutritional services, prosthetics and orthotics. Given her complex medical condition and risk for more complications, rehabilitation services cannot be provided at a low level of care such as a [facility] facility. PLAN: 1. Admit to [facility] for intensive inpatient therapy to include the following disciplines: A. Physical therapy to improve gait, all transfer skills and bed mobility to a modified independent level. B. Occupational therapy to improve activities of daily living to a modified independent level. C. Case management to assist with discharge planning and placement options. D. Nutrition to assist with nutritional needs. E. Rehabilitation nursing to assist in monitoring the patient's underlying medical conditions and to assist with any type of bowel or bladder management. 2. The patient's current medication and medical care will be continued. 3. The patient will be placed on standard fall precautions. 4. The patient's estimated length of stay is approximately 7 to 10 days. 5. We will discuss this patient during care team staff meeting this week. TRANSINT:[id number] Voice Confirmation ID: [id number] DOCUMENT ID: [id number] LETY notes whether there has been none or any medical/functional change since admission: - No change since prescreen. LETY attests patient continues to be appropriate for IRF: - Continues to be appropriate. HISTORY AND PHYSICAL [id number] BAILEY BLANCO SCOTT MD at 0844 CC: [id number] DICTATION DATE: 09/23/17931 POSTING MACHINE OPERATOR: 09/23/17 1019 ADM IN [place] [id number] [place] [id number]
[~2017-09-22 15:18] MED LIST changes: +ELIQUIS2.5 MG PO; +HYDROCODONE-APA1 TAB PO
[2017-09-22 16:14] VITALS: BP 137/80; BMI 31.5
[2017-09-22 20:48] VITALS: BP 117/40
[2017-09-23 06:04] LABS: BASOPHILS 0.3 % (0-2); EOSINOPHILS 2.2 % (0-7); HEMATOCRIT 33.3 % (36.0-48.0); HEMOGLOBIN 11.1 g/dL (12-16); IMMATURE GRANULOCYTES 0.2 % (0-5); LYMPHOCYTES 23.1 % (15-50); MCH 29.5 pg (26.0-34.0); MCHC 33.3 g/dL (31.0-37.0); MCV 88.6 fL (80.0-100.0); MEAN PLATELET VOLUME 9.7 fL (7.4-10.4); MONOCYTES 14.8 % (2-11); NEUTROPHILS 59.4 % (40-80); PLATELET COUNT 194 10x3/uL (130-400); RBC 3.76 10x6/uL (4.00-5.40); RDW 12.7 % (11.5-14.5); WBC 6.4 10x3/uL (4.8-10.8)
[2017-09-23 06:43] LABS: CALC OSMOLALITY 274 mosm/kg (275-300); CALCIUM 8.5 mg/dL (8.5-10.1); CARBON DIOXIDE 24.8 mmol/L (21.0-32.0); CHLORIDE - SERUM 105 mmol/L (98-107); CREATININE - SERUM 0.6 mg/dL (0.6-1.3); GLUCOSE 104 mg/dL (74-106); POTASSIUM - SERUM 3.5 mmol/L (3.5-5.1); SODIUM 138 mmol/L (136-145); UREA NITROGEN 11 mg/dL (7-18); eGFR NON AFRICAN AMERICAN > 90 mL/min (90-120)
[2017-09-23 08:02] VITALS: BP 153/72
[2017-09-23 09:32] VITALS: Ht 172.7 cm; Wt 93.9 kg
[2017-09-23 15:41] VITALS: BP 122/53
[2017-09-24 12:01] VITALS: BP 138/73
[2017-09-25 04:59] LABS: BASOPHILS 0.4 % (0-2); EOSINOPHILS 4.2 % (0-7); HEMATOCRIT 32.8 % (36.0-48.0); HEMOGLOBIN 10.8 g/dL (12-16); LYMPHOCYTES 31.2 % (15-50); MCH 29.3 pg (26.0-34.0); MCHC 32.9 g/dL (31.0-37.0); MCV 89.1 fL (80.0-100.0); MEAN PLATELET VOLUME 9.6 fL (7.4-10.4); NEUTROPHILS 50.2 % (40-80); PLATELET COUNT 204 10x3/uL (130-400); RBC 3.68 10x6/uL (4.00-5.40); RDW 12.7 % (11.5-14.5); WBC 5.1 10x3/uL (4.8-10.8)
[2017-09-25 05:37] LABS: CALC OSMOLALITY 272 mosm/kg (275-300); CALCIUM 8.5 mg/dL (8.5-10.1); CARBON DIOXIDE 26.8 mmol/L (21.0-32.0); CHLORIDE - SERUM 104 mmol/L (98-107); CREATININE - SERUM 0.7 mg/dL (0.6-1.3); GLUCOSE 97 mg/dL (74-106); POTASSIUM - SERUM 3.6 mmol/L (3.5-5.1); SODIUM 136 mmol/L (136-145); eGFR NON AFRICAN AMERICAN 85 mL/min (90-120)
[2017-09-25 05:39] LABS: UREA NITROGEN 15 mg/dL (7-18)
[2017-09-25 07:00] VITALS: BP 138/88
[2017-09-25 20:00] VITALS: BP 110/46
[2017-09-26 08:00] VITALS: BP 116/62
[2017-09-26 21:18] VITALS: BP 113/51
[2017-09-27 08:00] VITALS: BP 135/70
[2017-09-27 09:51] LABS: BASOPHILS 0.4 % (0-2); EOSINOPHILS 3.9 % (0-7); HEMATOCRIT 35.1 % (36.0-48.0); HEMOGLOBIN 11.5 g/dL (12-16); IMMATURE GRANULOCYTES 0.2 % (0-5); LYMPHOCYTES 26.6 % (15-50); MCH 29.4 pg (26.0-34.0); MCHC 32.8 g/dL (31.0-37.0); MCV 89.8 fL (80.0-100.0); MEAN PLATELET VOLUME 9.5 fL (7.4-10.4); MONOCYTES 15.2 % (2-11); NEUTROPHILS 53.7 % (40-80); PLATELET COUNT 257 10x3/uL (130-400); RBC 3.91 10x6/uL (4.00-5.40); RDW 12.8 % (11.5-14.5); WBC 4.6 10x3/uL (4.8-10.8)
[2017-09-27 10:01] LABS: ANION GAP 9.5 mmol/L (8-16); CALCIUM 8.7 mg/dL (8.5-10.1); CARBON DIOXIDE 28.4 mmol/L (21.0-32.0); CREATININE - SERUM 0.8 mg/dL (0.6-1.3); POTASSIUM - SERUM 3.9 mmol/L (3.5-5.1)
[2017-09-27 19:00] VITALS: BP 108/60
[2017-09-28 08:00] VITALS: BP 139/75
[2017-09-28 19:00] VITALS: BP 115/50
[2017-09-29 07:03] LABS: BASOPHILS 0.2 % (0-2); EOSINOPHILS 4.1 % (0-7); HEMATOCRIT 34.9 % (36.0-48.0); HEMOGLOBIN 11.4 g/dL (12-16); IMMATURE GRANULOCYTES 0.2 % (0-5); LYMPHOCYTES 37.5 % (15-50); MCH 29.3 pg (26.0-34.0); MCHC 32.7 g/dL (31.0-37.0); MCV 89.7 fL (80.0-100.0); MEAN PLATELET VOLUME 9.4 fL (7.4-10.4); PLATELET COUNT 277 10x3/uL (130-400); RBC 3.89 10x6/uL (4.00-5.40); RDW 12.9 % (11.5-14.5); WBC 4.4 10x3/uL (4.8-10.8)
[2017-09-29 07:24] LABS: CALC OSMOLALITY 274 mosm/kg (275-300); CALCIUM 8.8 mg/dL (8.5-10.1); CARBON DIOXIDE 25.4 mmol/L (21.0-32.0); CHLORIDE - SERUM 103 mmol/L (98-107); CREATININE - SERUM 0.7 mg/dL (0.6-1.3); GLUCOSE 96 mg/dL (74-106); POTASSIUM - SERUM 4.2 mmol/L (3.5-5.1); SODIUM 137 mmol/L (136-145); UREA NITROGEN 15 mg/dL (7-18); eGFR NON AFRICAN AMERICAN 85 mL/min (90-120)
[2017-09-29 08:00] VITALS: BP 129/75
[2017-09-29 19:00] VITALS: BP 116/49
[2017-10-01 07:51] VITALS: BP 131/75
[2017-10-01 20:30] VITALS: BP 127/70
[2017-10-02 07:18] LABS: BASOPHILS 0.5 % (0-2); EOSINOPHILS 4.6 % (0-7); HEMATOCRIT 33.5 % (36.0-48.0); HEMOGLOBIN 10.9 g/dL (12-16); IMMATURE GRANULOCYTES 0.3 % (0-5); LYMPHOCYTES 33.6 % (15-50); MCH 29.4 pg (26.0-34.0); MCHC 32.5 g/dL (31.0-37.0); MCV 90.3 fL (80.0-100.0); MEAN PLATELET VOLUME 8.8 fL (7.4-10.4); MONOCYTES 16.5 % (2-11); NEUTROPHILS 44.5 % (40-80); PLATELET COUNT 268 10x3/uL (130-400); RBC 3.71 10x6/uL (4.00-5.40); RDW 13.1 % (11.5-14.5); WBC 3.9 10x3/uL (4.8-10.8)
[2017-10-02 07:43] LABS: CALCIUM 8.5 mg/dL (8.5-10.1); CARBON DIOXIDE 28.1 mmol/L (21.0-32.0); CREATININE - SERUM 0.8 mg/dL (0.6-1.3); POTASSIUM - SERUM 4.1 mmol/L (3.5-5.1)
[2017-10-02 08:23] VITALS: BP 158/67
[2017-10-02 19:00] VITALS: BP 147/75
[2017-10-03 08:28] VITALS: BP 125/65
[2017-10-03 16:06] VITALS: BP 106/51
[2017-10-03 19:00] VITALS: BP 126/62
[2017-10-04 07:04] LABS: BASOPHILS 0.5 % (0-2); EOSINOPHILS 3.8 % (0-7); HEMATOCRIT 34.7 % (36.0-48.0); HEMOGLOBIN 11.2 g/dL (12-16); LYMPHOCYTES 38.3 % (15-50); MCH 29.4 pg (26.0-34.0); MCHC 32.3 g/dL (31.0-37.0); MCV 91.1 fL (80.0-100.0); MEAN PLATELET VOLUME 9.2 fL (7.4-10.4); MONOCYTES 17.1 % (2-11); NEUTROPHILS 40.3 % (40-80); PLATELET COUNT 313 10x3/uL (130-400); RBC 3.81 10x6/uL (4.00-5.40); RDW 13.2 % (11.5-14.5); WBC 4.2 10x3/uL (4.8-10.8)
[2017-10-04 07:09] LABS: ANION GAP 8.9 mmol/L (8-16); CALCIUM 8.8 mg/dL (8.5-10.1); CARBON DIOXIDE 28.4 mmol/L (21.0-32.0); CREATININE - SERUM 0.8 mg/dL (0.6-1.3); POTASSIUM - SERUM 4.3 mmol/L (3.5-5.1)
[2017-10-04 08:19] VITALS: BP 127/60
[2017-10-04] MEDS ORDERED: HYDROCODONE-APA1 TAB PO (08:43)
== END 2017-10-04 12:19 | disposition home health service (06) | DRG 560 ==
LOC: D.REHAB 15:18
PROVIDERS: Emergency Medicine
DX: Z47.1 Aftercare following joint replacement surgery (principal); D62 Acute posthemorrhagic anemia; Z96.642 Presence of left artificial hip joint; R09.02 Hypoxemia; I10 Essential (primary) hypertension

== ENCOUNTER → 2019-02-18 10:59 | Outpatient (CLI) | payer MEDICARE, OTHER ==
[2017-09-23 09:32] VITALS: BMI 31.4
== END | disposition home or self-care (01) ==
LOC: D.HCCECHO 10:59
PROVIDERS: ATTEND Internal Medicine Cardiovascular Disease
DX: I34.0 Nonrheumatic mitral (valve) insufficiency (principal)

== ENCOUNTER → 2020-07-08 10:25 | Outpatient (CLI) | payer MEDICARE, OTHER ==
[2017-09-23 09:32] VITALS: BMI 31.4
== END | disposition home or self-care (01) ==
LOC: D.HCCECHO 10:25
PROVIDERS: ATTEND Internal Medicine Cardiovascular Disease
DX: I34.0 Nonrheumatic mitral (valve) insufficiency (principal)